=== PATIENT | male | born 1950 | race African-American/Black ===

== ENCOUNTER 2020-01-29 05:25 | Day surgery (SDC) | payer MEDICARE, OTHER ==
[2020-01-23 10:14] LABS: EOSINOPHILS % (AUTO) 3.2 % (0.0-3.0); HEMATOCRIT 48.6 % (42.0-52.0); HEMOGLOBIN 14.8 G/DL (14.2-18.0); LYMPHOCYTES % (AUTO) 32.2 % (20.0-45.0); MEAN CORPUSCULAR VOLUME 93 FL (80-99); MONOCYTES % (AUTO) 6.7 % (1.0-10.0); NEUTROPHILS % (AUTO) 55.9 % (45.0-75.0); PLATELET COUNT 208 K/UL (150-450); RED CELL DISTRIBUTION WIDTH 14.1 % (11.6-14.8); WHITE BLOOD COUNT 8.1 K/UL (4.8-10.8)
[2020-01-23 10:24] LABS: ANION GAP 10 mmol/L (5-15); BLOOD UREA NITROGEN 16 mg/dL (7-18); CALCIUM 9.2 MG/DL (8.5-10.1); CARBON DIOXIDE 26 MMOL/L (21-32); CHLORIDE 105 MMOL/L (98-107); CREATININE 1.6 MG/DL (0.55-1.30); SODIUM 141 MMOL/L (136-145)
--- NOTE | 2020-01-23 10:48 | Diagnostic Imaging Report ---
Procedure: XRAY Chest 1v Reason for study: Reason For Exam: COUGH Comparison films: None. FINDINGS: Right hemidiaphragm is elevated Vascularity is normal. Mild hazy density lateral left lung base. Cardiac and mediastinal silhouette are within normal limits. CP angles are sharp. The bony thorax appear unremarkable. IMPRESSION: Mild hazy densities lateral left lung base either atelectasis versus early infiltrate.
--- NOTE | 2020-01-24 10:51 | Opthalmology H&P ---
Ophthalmology H&P H&P Chief Complaint: decreased vision in left eye HPI Vision Affects Ability to: read, manage personal affairs Past Ocular History: glaucoma HPI Narrative Blurry Vision Exam Visual Acuity: OD 20/30 OS 20/60 Tension: OD 10 OS 11 Eye Exam: normal OU: external exam, palpebral fissure-width, marginal reflex distance, levator function, corneas, anterior chambers; findings: lens - Pseudo OD ,NS Cataract OS, fundus exam - Glaucoma OU Assessment/Plan Treatment Plan: cataract extraction w/ lens implant Goals of Treatment: improvement of vision, enhance quality of life Attestation Attestation The risks and benefits of the surgery as well as alternative procedures were explained to the patient in detail. Jonnathan Randall MD Jan 24, 2020 10:51
--- NOTE | 2020-01-24 10:55 | Pre-Procedure Note/Attestation ---
Pre-Procedure Note/Attestation Complete Prior to Procedure Planned Procedure: left Procedure Narrative: Cataract extraction with IOL implant left eye Indications for Procedure Pre-Operative Diagnosis: Nuclear sclerotic cataract left eye Attestation I attest that I discussed the nature of the procedure; its benefits; risks and complications; and alternatives (and the risks and benefits of such alternatives ), prior to the procedure, with the patient (or the patient's legal phone representative). I attest that, if there was a reasonable possibility of needing a blood transfusion, the patient (or the patient's legal phone representative) was given the [facility] standardized written summary, pursuant to the Frank Rolan Blood Safety Act ([place] [facility] and Safety Code # 1645, as amended). I attest that I re-evaluated the patient just prior to the surgery and that there has been no change in the patient's H&P, except as documented below: Jonnathan Randall MD Jan 24, 2020 10:55
[~2020-01-29] VITALS: Ht 162.6 cm; Wt 75.7 kg
[2020-01-29] VITALS (9 sets, daily range): BP systolic 106–128; BP diastolic 65–80
[~2020-01-29 05:25] MED LIST: DULERA 200 MCG/13 GM IH; GABAPENTIN400 MG ORAL; PROAIR HFA8.5 GM INH
[2020-01-29] MEDS: Phenylephrine 10% Opth Soln 5ml LEFT EYE SCH ×3 (05:54→06:16)
[2020-01-29] MEDS: Cyclopentolate 1% Opth Sol 2ml LEFT EYE SCH ×3 (05:54→06:16)
[2020-01-29] MEDS: Diclofenac Sod 0.1% Op Soln LEFT EYE SCH ×3 (05:54→06:16)
[2020-01-29] MEDS: Tropicamide 1% Opth 15ml Soln LEFT EYE SCH ×3 (05:54→06:16)
[2020-01-29] MEDS: Tobramycin Op Soln 0.3% 5ml LEFT EYE SCH ×3 (05:55→06:16)
[2020-01-29] MEDS ORDERED: prednisoLONE acetate 1% Opth Susp 1ml ONE (07:00)
[2020-01-29] MEDS ORDERED: Polysporin Oint 15gm TOPIC ONE (07:00)
[2020-01-29] MEDS ORDERED: Pilocarpine 1% Opth 15ml Soln ONE (07:00)
[2020-01-29] MEDS ORDERED: Tetracaine 0.5% Opth 4ml Soln LEFT EYE ONE (07:00)
[2020-01-29] MEDS ORDERED: Akten 3.5% 1ml Btl LEFT EYE ONE (07:00)
[2020-01-29] MEDS ORDERED: Proparacaine 0.5% Opth Soln 15ml LEFT EYE ONE (07:00)
[2020-01-29] MEDS ORDERED: Lidocaine 4% Amp 5ml ONE (07:18)
[2020-01-29] MEDS ORDERED: EPINEPHrine 1mg/1ml Amp ONE (07:18)
[2020-01-29] MEDS ORDERED: BSS 15ml BTL ONE (07:19)
[2020-01-29] MEDS ORDERED: BSS 500ml btl ONE (07:19)
[2020-01-29] MEDS ORDERED: Lidocaine 2% MPF 5ml Vial INJ ONE (07:19)
[2020-01-29] MEDS ORDERED: Carbachol 0.01% Op Soln 1.5ml vial ONE (07:19)
[2020-01-29] MEDS ORDERED: Sodium Hyaluronate 10 mg/ml 0.85ml ONE (07:19)
[2020-01-29] MEDS ORDERED: acetaZOLAMIDE 500mg Inj ONE (07:19)
[2020-01-29] MEDS ORDERED: Bupivacaine 0.75% 30ml vial INJ ONE (07:19)
[2020-01-29] MEDS ORDERED: Povidone-Iodine 5% opth solution ONE (07:19)
[2020-01-29] MEDS ORDERED: fentaNYL 100 mcg/2 mL IV ONE (09:27)
[2020-01-29] MEDS ORDERED: Midazolam 2mg/2ml Inj ONE (09:27)
--- NOTE | 2020-01-29 09:53 | Anethesia Preoperative Eval ---
Anesthesia Pre-op PMH/ROS General Date of Evaluation: Jan 29, 2020 Time of Evaluation: 09:51 Anesthesiologist: frankie ASA Score: ASA 3 Mallampati Score Class I : Soft palate, uvula, fauces, pillars visible Class II: Soft palate, uvula, fauces visible Class III: Soft palate, base of uvula visible Class IV: Only hard plate visible Mallampati Classification: Class II Surgeon: hubert Diagnosis: cataract Surgical Procedure: cataract extraction Family History: no anesthesia problems Allergies: Coded Allergies: No Known Allergies (Unverified , 01/29/20) Medications: see eMAR Patient NPO?: Yes NPO Date: Jan 29, 2020 NPO Time: 00:01 Past Medical History Cardiovascular: Denies: HTN, CAD, [place], valve dz, arrhythmia, other Pulmonary: Reports: asthma; Denies: COPD, RUPERT, other Gastrointestinal/Genitourinary: Reports: GERD; Denies: CRI, ESRD, other Neurologic/Psychiatric: Denies: dementia, CVA, depression/anxiety, TIA, other Endocrine: Denies: DM, hypothyroidism, steroids, other HEENT: Reports: cataract (L); Denies: cataract (R), glaucoma, HO-CHUNK (L), HO-CHUNK (R), other Hematology/Immune: Denies: anemia, DVT, bleeding disorder, other Musculoskeletal/Integumentary: Denies: OA, RA, DJD, DDD, edema, other PSxH Narrative: cataract extraction Anesthesia Pre-op Phys. Exam Physician Exam Last Vital Signs Date Time Temp Pulse Resp B/P (MAP) Pulse Ox O2 Delivery O2 Flow Rate FiO2 01/29/20 05:58 Room Air 01/29/20 05:57 97.8 67 18 128/79 98 Constitutional: NAD Neurologic: CN 2-12 intact Cardiovascular: RRR Respiratory: CTA Gastrointestinal: S/NT/ND Airway Exam Mallampati Classification 2 Mallampati Score: Class II ROM: full Dentures: no upper, no lower Anesthesia Pre-op A/P Studies Pre-op Studies: EKG - sr Risk Assessment & Plan Assessment: denies changes in health Plan: mac Status Change Before Surgery: No Pre-Antibiotics Drug: declined Kamala Hill CRNA Jan 29, 2020 09:53
[2020-01-29] MEDS ORDERED: NS Irrig 1000ml ONE (10:00)
[2020-01-29] MEDS ORDERED: LR 1000ml ONE (10:00)
[2020-01-29] MEDS ORDERED: Sterile Water Irrig 1000ml IRRIG ONE (10:00)
--- NOTE | 2020-01-29 10:38 | Immediate Post-Op Evaluation ---
Immediate Post-Op Evalulation Immediate Post-Op Evalulation Procedure: left eye cataract extraction Date of Evaluation: Jan 29, 2020 Time of Evaluation: 10:38 IV Fluids: 500 Blood Pressure Systolic: 130 Blood Pressure Diastolic: 60 Pulse Rate: 70 Respiratory Rate: 14 O2 Sat by Pulse Oximetry: 98 Temperature (Fahrenheit): 97.3 Nausea: No Vomiting: No Complications none Patient Status: awake, reacts, patent Hydration Status: adequate Drug: none Kamala Hill CRNA Jan 29, 2020 10:38
--- NOTE | 2020-01-29 11:40 | 48 Hour Post Anesthesia Eval ---
Post Anesthesia Evaluation Procedure: left eye cataract extraction Date of Evaluation: Jan 29, 2020 Time of Evaluation: 11:40 Blood Pressure Systolic: 114 0: 69 Pulse Rate: 53 Respiratory Rate: 14 O2 Sat by Pulse Oximetry: 99 Airway: patent Nausea: No Vomiting: No Hydration Status: adequate Cardiopulmonary Status: stable Mental Status/LOC: patient returned to baseline Follow-up Care/Observations: na Follow-up care needed: N/A Kamala Hill CRNA Jan 29, 2020 11:40
--- NOTE | 2020-01-29 14:13 | Brief Operative Note ---
Immediate Post Operative Note Operative Note Chief Complaint: Blurry vision Pre-op Diagnosis: Nuclear sclerotic cataract left eye Procedure: Cataract extraction with IOL implant left eye Post-op Diagnosis: Pseudophakia OS Findings: consistent w/pre-op dx studies Surgeon: Jonnathan Randall MD Anesthesiologist: Kamala Hill CRNA Anesthesia: MAC Specimen: none Complications: none Condition: stable Fluids: LR Estimated Blood Loss: none Drains: none Implant(s) used?: Yes - IOL-OS Jonnathan Randall MD Jan 29, 2020 14:13
--- NOTE | 2020-01-29 14:15 | Operative Note - PDOC ---
Operative Note Operative Note Date of Operation/Procedure: Jan 29, 2020 Chief Complaint: Blurry vision Pre-op Diagnosis: Nuclear sclerotic cataract left eye Procedure: Cataract extraction with IOL implant left eye Post-op Diagnosis: Pseudophakia OS Operative Findings: consistent w/pre-op dx studies Surgeon: Jonnathan Randall MD Anesthesiologist: Kamala Hill CRNA Anesthesia: MAC Specimen: none Complications: none Condition: stable Fluids: LR Estimated Blood Loss: none Drains: none Implant(s) used?: Yes - IOL-OS Indications for Procedure Nuclear sclerotic cataract left eye Description of Procedure This patient has been complaining visually significant cataract in the left eye with the best corrected visual acuity of 20/60 under moderate glare conditions worse. The patient complains of difficulties with glare in performing activities of daily living and wants to manage personal affairs with comfort and accuracy and see well enough to move with safety at home and outdoors. The risks, benefits and alternatives of the procedure were discussed with the patient in the office prior to scheduling surgery. All questions from the patient were answered after the surgical procedure was explained in detail. The risks of the procedure as explained to the patient include, but are not limited to, pain, infection, bleeding, loss of vision, retinal detachment, need for further surgery, loss of lens nucleus, double vision, etc. Alternative procedures were discussed which include, to do nothing or seek a second opinion. Informed consent for this procedure was obtained from the patient. The patient was referred to a primary care physician for a cardiopulmonary clearance prior to surgery, after proper evaluation was done patient was properly scheduled for outpatient surgery. The patient was brought to the operating room where the anesthesiologist established I.V. lines and cardiac monitoring leads. Mild intravenous sedation was administered. The patient was then prepared with a 5% solution of povidone -iodine to the conjunctival fornix and lashes, and a 5% solution of povidone- iodine to the lids and periorbital skin. The patient was then draped in the usual sterile fashion. A lid speculum was then placed in the operative eye. A keratome blade was then used to create a biplanar incision into the anterior chamber. Viscoelastics was then instilled into the anterior chamber. A capsulorrhexis was then fashioned with an utrata forceps. BSS and a cannula were then used to hydrodissect and hydro delineate the lens. Paracentesis incision was made at 3 o'clock with sharp blade. The phacoemulsification unit, after being properly adjusted and tested, was then used to emulsify the nucleus. Residual cortical material was aspirated with the irrigation and aspiration unit. Healon was then instilled into the anterior chamber. The corneal wound was then enlarged to the size of the optic with the jaki keratome blade. The intraocular lens was then inspected for right power and size and thought to be satisfactory. Then the lens was gently placed in the capsular bag. Positioning within the capsular bag was confirmed by direct visualization. Optic centration was accomplished with a Sinskey hook. Viscoelastics was removed from the anterior chamber using the irrigation and aspiration unit. The corneal wound was then tested for leaks and none were found. The lid speculum were then removed. Sponge and needle counts were correct. An eye patch and shield were placed over the operative eye. The patient was taken to the recovery room in stable condition. There were no complications. The patient tolerated the procedure well. The patient was then transferred to the ambulatory surgery unit in stable and satisfactory condition , was given detailed written instructions and asked to follow up in the office the next day. Jonnathan Randall MD Jan 29, 2020 14:15
== END 2020-01-29 11:45 | disposition home or self-care (01) ==
LOC: SUR 05:25
DX: H25.12 Age-related nuclear cataract, left eye (principal); K21.9 Gastro-esophageal reflux disease without esophagitis
CPT/HCPCS: 36415; 66850; 71045; 80048; 85025; 85610; 85730; 93005; 94003; J0171; J1100; J2250; J3010; J3370; J7120; V2632; 94150